=== PATIENT | male | born 1995 | race Caucasian/White ===

== ENCOUNTER 2017-10-12 07:17 | Emergency (ER) | payer OTHER ==
[~2017-10-12] VITALS: Ht 185.4 cm; Wt 77.1 kg
[~2017-10-12 07:17] MED LIST: ACE3 PO; ACE500 PO; ALB6.7R INH; ALBU2.5V36 INH; ALBU8.5H IH; AMOX-559 PO; AZI250 PO; AZIT-1 PO; BENZ200C15 PO; BUTA1CAP4; BUTA1CAP4 PO; DEXT15SY15 PO; DICY-42 PO; FEXO30TA PO; FLU60VIA21 IM ONLY; GUAI177L2 PO; HYDR-3250 PO; IBUP400T13 PO; MYLL PO; NAPR-724 PO; ONDA4TAB PO; ONDA4TAB97 PO; PANT40SU3 PO; PENI-24 PO; PRE20 PO; PRED-1 PO; PRED20TA6 PO; RANI-315 PO; RIZA10TA24 PO; SUMA50TA34 PO; TRAZ-156 PO; Work Note; [UNRECOGNIZED DRUG - CODE] PO
[2017-10-12] MEDS ORDERED: ALBUTEROL/IPRATROPIUM 3 ML NEB NEB ONE (07:40)
--- NOTE | 2017-10-12 08:03 | ER Report ---
History and Physical Time Seen By MD: 07:35 Hx. of Stated Complaint: PT HAS BEEN SICK FOR 2 WEEKS, GETTING WORSE WITH COUGH, SORE THROAT AND CONGESTION. INHALER HAS NOT WORKED WAS SEEN IN CLINIC AND PRESCRIBED ZITHROMAX 2 DAYS AGO HPI/ROS CHIEF COMPLAINT: Cough shortness of breath HISTORY OF PRESENT ILLNESS: An otherwise healthy 22-year-old male significant past medical history of asthma moderately to poorly controlled saw his doctor 24 hours ago diagnosed negative influenza with upper respiratory most likely viral was given prednisone was been on prednisone for approximately 24 hours is not feeling better came to the emergency department for further evaluation. Patient is denying chest pain exertional dyspnea orthopnea or PND. Patient says that his cough is nonproductive but persistent and is awoke him up from sleep. Patient has no abdominal pain no nausea vomiting diarrhea fever or chills patient stated that he thought he may have had a fever yesterday of 101. REVIEW OF SYSTEMS: Respiratory: Cough mild shortness of breath Cardiovascular: No chest pain, no palpitations. Gastrointestinal: No vomiting, no abdominal pain. Musculoskeletal: No back pain. Remainder of the 14 system rev: Yes Allergies: Coded Allergies: No Known Drug Allergies (Verified , 10/12/17) Home Meds Active Scripts Prednisone (PREDNISONE) 20 Mg Tablet, 1 TAB PO BID for 5 Days, #10 TAB 0 Refills Prov:MEGAN RAMOS DNP, FNP-BC 10/10/17 Azithromycin (ZITHROMAX) 250 Mg Tablet, 0 PO QDAY, #6 TAB 0 Refills TAKE 2 TABLETS ON DAY 1 AND 1 TABLET ON DAYS 2-5 Prov:MEGAN RAMOS DNP, FNP-BC 10/10/17 Dicyclomine Hcl (BENTYL) 10 Mg Capsule, 1 CAP PO Q6H Y for PAIN, #30 CAPSULE 6 Refills Prov:GRECIA MCNEIL MD 05/23/17 Trazodone Hcl (TRAZODONE HCL) 50 Mg Tablet, 1 TAB PO QHS for Sleep, #30 TAB 0 Refills Prov:MEGAN RAMOS DNP, FNP-BC 03/28/17 Albuterol Sulfate 0.083% (ALBUTEROL SULFATE 0.083%) 2.5 Mg/3 Ml Vial.neb, 2.5 MG INH QID Y for asthma symptoms, #25 INH Prov:XENIA ADBI DO 01/11/17 Albuterol Sulfate 90 Mcg/Act (PROAIR HFA 90 MCG/ACT) 8.5 Gm Hfa.aer.ad, 2 PUFF IH Q4-6H Y for WHEEZING, #1 INHALER 3 Refills Prov:MEGAN RAMOS DNP, FNP-BC 11/26/16 Reported Medications Aspirin/Acetaminophen/Caffeine (MIGRAINE RELIEF CAPLET) 1 Each Tablet, 1 EACH PO PRN 04/06/17 Discontinued Scripts Rizatriptan Benzoate ([employer]) 10 Mg Tab.rapdis, 1 TAB PO PRN Y for MIGRAINE , #12 TAB 0 Refills m1 tab at start of headache, repeat 1 hour if needed, thereafter every 8 hours. max 4 tab in 24 hours. Prov:MEGAN RAMOS DNP, FNP-BC 10/10/17 Naproxen (NAPROXEN) 500 Mg Tablet, 1 TAB PO BID Y for PAIN, #20 TAB 0 Refills Prov:MEGAN RAMOS DNP, FNP-BC 07/13/17 Ondansetron (ZOFRAN ODT) 4 Mg Tab.rapdis, 4 MG PO Q6-8H Y for NAUSEA/VOMITING, # 15 TAB.AYSE Prov:SILVANA DOW DO 05/15/17 Reviewed Nurses Notes: Yes Old Medical Records Reviewed: Yes Hx Smoking: Yes (SMOKES 1/2 PPD FOR 4 YEARS. CHEWS SNUFF PACKETS) Smoking Status: Current: Every Day Smoker Exposure to Second Hand Smoke?: No Hx Substance Use Disorder: Yes (marijuana) Hx Alcohol Use: No Constitutional Vital Sign - Last 24 Hours 10/12/17 10/12/17 10/12/17 10/12/17 07:22 07:23 07:30 07:44 Temp 99.8 Pulse 89 96 Resp 20 16 B/P (MAP) 144/89 144/89 (107) 132/78 (96) Pulse Ox 92 O2 Delivery Room Air 10/12/17 10/12/17 10/12/17 10/12/17 07:44 07:45 07:47 07:50 Pulse 85 B/P (MAP) 125/88 (100) Pulse Ox 91 98 98 O2 Delivery Room Air Room Air 10/12/17 10/12/17 10/12/17 10/12/17 07:50 08:00 08:04 08:15 Pulse 82 Resp 16 B/P (MAP) 113/108 (110) 134/86 (102) 128/79 (95) 10/12/17 10/12/17 08:17 08:30 Pulse 83 B/P (MAP) 140/89 (106) Pulse Ox 93 Physical Exam General Appearance: [The patient is alert, has no immediate need for airway protection and no current signs of toxicity.] [ ] Eyes: Pupils equal and round no injection. Respiratory: Patient with out and expiratory wheezes difficult to appreciate due to poor inspiratory next [place] effort otherwise unremarkable exam Cardiac: regular rate and rhythm [ ] Gastrointestinal: Abdomen is soft and non tender, no masses, bowel sounds normal. Musculoskeletal: Neck: Neck is supple and non tender. Extremities have full range of motion and are non tender. Skin: No rashes or lesions. [ ] DIFFERENTIAL DIAGNOSIS: After history and physical exam differential diagnosis was considered for think rule out for pulmonary emboli rule out for cardiac abnormality viral upper respiratory influenza asthma exacerbation Medical Decision Making Data Points Laboratory Hematology Test 10/12/17 07:41 Influenza Virus Type A (PCR) Negative (NEGATIVE) Influenza Virus Type B (PCR) Positive (NEGATIVE) Chemistry Test 10/12/17 07:41 Influenza Virus Type A (PCR) Negative (NEGATIVE) Influenza Virus Type B (PCR) Positive (NEGATIVE) ED Course/Re-evaluation ED Course ED clinical course medical decision making 22-year-old male comes in with an upper respiratory cough and subjective low-grade fevers had a negative influenza repeat influenza here was positive for influenza B patient has had symptoms for over a week now so Tamiflu will be ineffective we'll give him some Tessalon Perles for his cough [id number] cough suppressant and a week off of work have him follow up with his primary care Decision to Disposition Date: Oct 12, 2017 Decision to Disposition Time: 08:42 Depart Departure Latest Vital Signs Vital Signs Date Time Temp Pulse Resp B/P (MAP) Pulse Ox O2 Delivery O2 Flow Rate FiO2 10/12/17 08:30 140/89 (106) 10/12/17 08:17 83 93 10/12/17 07:50 16 10/12/17 07:50 Room Air 10/12/17 07:22 99.8 Impression: Primary Impression: Influenza B Condition: Improved Disposition: HOME OR SELF-CARE Referrals: MEGAN RAMOS DNP, NEUROLOGY TECHNOLOGIST-BC (PCP) New Scripts Benzonatate 100 Mg Cap (TESSALON PERLE 100 MG CAP) 100 Mg Capsule 100 MG PO TID, #15 CAP Prov: THU CHEN MD 10/12/17 Patient Instructions: Influenza (DC) THU CHEN MD Oct 12, 2017 08:03
--- NOTE | 2017-10-12 08:22 | RADIOLOGY IMAGING REPORT ---
FACILITY: [facility] [place] PATIENT NAME: Rolly Newell : 1995 MR: [id number] V: [id number] EXAM DATE: ORDERING PHYSICIAN: THU CHEN TECHNOLOGIST: Location: [facility] Patient: Rolly Newell : 1995 Visit/Account:[id number] Date of Sevice: 10/12/2017 EXAMINATION: Chest radiographs 2 views HISTORY: Cough. COMPARISON: 07/20/2016 FINDINGS: PA and lateral views of the chest are submitted. Lines/tubes: None. Lungs/pleura: No focal consolidation or pleural effusion. Heart: Negative. Mediastinum: Negative. Bony structures/body wall: Negative. IMPRESSION: No radiographic evidence of acute cardiopulmonary disease. Report Dictated By: Purnima Mccarty MD at 10/12/2017 8:16 AM Report E-Signed By: Purnima Mccarty MD at 10/12/2017 8:18 AM WSN:[id number]
[2017-10-12] MEDS ORDERED: BENZ100C4 PO (08:44)
[2017-10-12 08:49] VITALS: BP 129/81
== END 2017-10-12 09:04 | disposition home or self-care (01) ==
LOC: ER 07:24
DX: J11.1 Influenza due to unidentified influenza virus with other respiratory manifestations (principal)
CPT/HCPCS: 71046; 87502; 94640; 99282; J7620

== ENCOUNTER → 2018-06-26 | Outpatient (REF) | payer OTHER ==
[~2018-06-26] MED LIST changes: +BENZ100C4 PO; -NAPR-724 PO; +NAPR500T31 PO; -TRAZ-156 PO; +TRAZ50TA34 PO
[2018-06-26 18:39] LABS: PLATELET COUNT, AUTOMATED 199 K/uL (150-450)
== END ==
PROVIDERS: ATTEND Family Medicine
DX: S09.90XA Unspecified injury of head, initial encounter (principal)
CPT/HCPCS: 82040; 82247; 82310; 82374; 82435; 82565; 82947; 84075; 84132; 84155; 84295; 84450; 84460; 84520; 85025; 86140

== ENCOUNTER → 2018-06-26 | Outpatient (CLI) | payer OTHER ==
--- NOTE | 2018-06-26 18:32 | RADIOLOGY IMAGING REPORT ---
FACILITY: [facility] PATIENT NAME: Rolly Newell : 1995 MR: [id number] V: [id number] EXAM DATE: ORDERING PHYSICIAN: JODIE NICOLAS TECHNOLOGIST: Location: [facility] Patient: Rolly Newell : 1995 Visit/Account:[id number] Date of Sevice: 06/26/2018 EXAMINATION: CT Head Without Contrast 06/26/2018 5:58 PM HISTORY: Head trauma TECHNIQUE: Contiguous axial images were obtained from the skull base to the vertex without intraven ous contrast. One of the following dose optimization techniques was utilized in the performance of this exam: Autom ated exposure control; adjustment of the mA and/or kV according to the patient's size; or use of an i terative reconstruction technique. Specific details can be referenced in the facility's radiology C T exam operational policy. COMPARISON STUDIES: MR 11/12/2015. CT 09/23/2015. FINDINGS: Ventricles / sulci / fissures: negative Masses / hemorrhage / midline shift: negative White matter: negative Yee-white differentiation: negative Extra-axial spaces: negative Dural venous sinuses / arterial structures: negative Skull base / calvarium: No acute bony finding. Wax along the external auditory canal on the right. Visualized mastoid air cells / paranasal sinuses: negative IMPRESSION: Normal head CT. No evidence of mass, acute ischemia or hemorrhage. I am having the [facility]'s call negative results to JODIE NICOLAS for me at 06/26/2018 6:29 PM. Report Dictated By: Stew Jacobson MD at 06/26/2018 6:24 PM Report E-Signed By: Stew Jacobson MD at 06/26/2018 6:29 PM WSN:[id number]
== END ==
LOC: CT 17:38
PROVIDERS: ATTEND Family Medicine
DX: S09.90XA Unspecified injury of head, initial encounter (principal)
CPT/HCPCS: 70450

== ENCOUNTER → 2018-11-07 | Outpatient (CLI) | payer OTHER ==
[~2018-11-07] MED LIST changes: +PANT40TA65 PO
--- NOTE | 2018-11-07 15:45 | RADIOLOGY IMAGING REPORT ---
FACILITY: [facility] [place] PATIENT NAME: oRlly Newell : 1995 MR: [id number] V: [id number] EXAM DATE: ORDERING PHYSICIAN: BETTY LYONS TECHNOLOGIST: Location: [facility] Patient: Rolly Newell : 1995 Visit/Account:[id number] Date of Sevice: 11/07/2018 TESTICULAR HISTORY: Intermittent right testicular pain COMPARISON: CT on pelvis May 15, 2017 FINDINGS: Testes: The right testicle measures 5.2 x 2.6 x 3.1 cm. The left measures 4.9 x 2.3 x 3 cm. Symmetr ic and unremarkable blood flow documented by color and Duplex Doppler ultrasound. Epididymides: There is a 3.3 mm cyst in the head the epididymis on the right. There is a 6.5 mm cyst had epididymis on the left Blood flow is unremarkable in each epididymis by color Doppler ultrasoun d. Hydrocele: Small bilaterally Varicocele: On the left IMPRESSION: There small bilateral hydroceles and a small left varicocele There are small cysts in the head the epididymides bilaterally Report Dictated By: Bella Shepherd MD at 11/07/2018 3:39 PM Report E-Signed By: Bella Shepherd MD at 11/07/2018 3:41 PM WSN:[email or web address]
== END ==
LOC: US 09:57
DX: N43.2 Other hydrocele (principal); I86.1 Scrotal varices; N50.3 Cyst of epididymis
CPT/HCPCS: 76870

== ENCOUNTER 2019-01-16 12:56 | Emergency (ER) | payer OTHER ==
--- NOTE | 2019-01-16 13:23 | ER Report ---
History and Physical Time Seen By : 13:09 Hx. of Stated Complaint: PATIENT SLICED HIS FINGER AT WORK WHILST SLICING WHITE ONIONS HPI/ROS CHIEF COMPLAINT: Laceration of left middle finger HISTORY OF PRESENT ILLNESS: This is a 23-year-old male presents to emergency department for laceration of left middle finger. Patient states that he was at work cutting some onions knife slipped and cut the distal end of his left middle finger, through the corner of the nail. States he had significant amount of bleeding, he did irrigate the wound at work. The ER for evaluation. Bleeding is controlled. No other injuries identified. REVIEW OF SYSTEMS: Respiratory: No cough, no dyspnea. Cardiovascular: No chest pain, no palpitations. Gastrointestinal: No vomiting, no abdominal pain. Musculoskeletal: No back pain. Integument: As above. Allergies: Coded Allergies: No Known Drug Allergies (Verified , 10/12/17) Home Meds Active Scripts Albuterol Sulfate 0.083% (ALBUTEROL SULFATE 0.083%) 2.5 Mg/3 Ml Vial.neb, 2.5 MG INH QID PRN for WHEEZING, #30 INH 6 Refills Prov:GARY BOYD MD 08/31/18 Pantoprazole Sodium (PANTOPRAZOLE SODIUM) 40 Mg Tablet.dr, 40 MG PO QDAY, #30 TAB.SR 3 Refills Prov:GARY BOYD MD 08/31/18 Albuterol Sulfate 90 Mcg/Act (PROAIR HFA 90 MCG/ACT) 8.5 Gm Hfa.aer.ad, 2 PUFF IH Q4-6H PRN for WHEEZING, #1 INHALER 3 Refills Prov:MEGAN RAMOS DNP, SCHOOL YEAR NANNY-BC 11/26/16 Reported Medications Aspirin/Acetaminophen/Caffeine (MIGRAINE RELIEF CAPLET) 1 Each Tablet, 1 EACH PO PRN 04/06/17 Past Medical/Surgical History Patient has a past medical and surgical history of concussions, seizures was concussions, headaches, angina from anxiety, asthma, carpal tunnel syndrome, cysts on kidneys, hand fracture, he uses marijuana, anxiety, epigastric hernia repair. Reviewed Nurses Notes: Yes Hx Smoking: Yes (SMOKES 1/2 PPD FOR 4 YEARS. CHEWS SNUFF PACKETS) Smoking Status: Current: Every Day Smoker Exposure to Second Hand Smoke?: No Hx Substance Use Disorder: Yes (marijuana) Hx Alcohol Use: No Constitutional Vital Sign - Last 24 Hours 01/16/19 13:00 Temp 98.2 Pulse 71 Resp 20 B/P (MAP) 136/91 Pulse Ox 92 O2 Delivery Room Air Physical Exam General Appearance: The patient is alert, has no immediate need for airway protection and no current signs of toxicity. Eyes: Pupils equal and round no injection. Respiratory: Chest is non tender, lungs are clear to auscultation. Cardiac: regular rate and rhythm . Gastrointestinal: Abdomen is soft and non tender, no masses, bowel sounds normal. Musculoskeletal: Neck: Neck is supple and non tender. Extremities have full range of motion and are non tender. Skin: Small avulsion laceration to the distal aspect of the left middle finger. Small corner of the nail involved. Bleeding controlled. DIFFERENTIAL DIAGNOSIS: After history and physical exam differential diagnosis was considered for laceration. Medical Decision Making ED Course/Re-evaluation ED Course Patient was admitted to room. A history of physical were obtained. Differential diagnoses were considered. A digital block with provided relief of the discomfort. The wound was cleansed, as I was ready to suture the 2 cm avulsion, the patient requested that I just cut the flap off, I did explain to the patient the avulsed piece would act as a bandage, however he did not want return for suture removals, I did cut the flap off. The wound was dressed, we discussed wound care and management. He requested understanding. I did find him that antibiotics are not warranted at this time, he did express understanding. He had no other questions or concerns at this time and was discharged home. His tetanus was up-to-date. Decision to Disposition Date: January 16, 2019 Decision to Disposition Time: 14:20 Depart Departure Latest Vital Signs Vital Signs Date Time Temp Pulse Resp B/P (MAP) Pulse Ox O2 Delivery O2 Flow Rate FiO2 01/16/19 13:00 98.2 71 20 136/91 92 Room Air Impression: Primary Impression: Laceration of left middle finger Condition: Improved Disposition: HOME OR SELF-CARE Referrals: GARY BOYD MD (PCP) Patient Instructions: Acute Wound Care (ED) Additional Instructions: Keep wound dry for 48 hours. Follow up with your primary care provider in the next 7-10 days for reevaluation if no improvement. Monitor for signs of infection; redness, swelling, heat, discharge, increasing pain or red streaking. Take Tylenol or Ibuprofen as needed for pain. Return to the ER with any concerns. You may change dressing as needed. Problem Qualifiers Primary Impression: Laceration of left middle finger Encounter type: initial encounter Damage to nail status: with damage Foreign body presence: without foreign body Qualified Codes: S61.313A - Laceration without foreign body of left middle finger with damage to nail, initial encounter MARIO ALVARENGA-DIANE January 16, 2019 13:23
[2019-01-16] MEDS ORDERED: DIPHTH/TETANUS/ACEL. PERTUSSIS IM ONLY ONE (13:40)
[2019-01-16 14:32] VITALS: BP 147/63
== END 2019-01-16 14:33 | disposition home or self-care (01) ==
LOC: ER 13:08
DX: S61.213A Laceration without foreign body of left middle finger without damage to nail, initial encounter (principal); W26.0XXA Contact with knife, initial encounter
CPT/HCPCS: 99283

== ENCOUNTER → 2019-02-11 | Outpatient (REF) | payer OTHER ==
[~2019-02-11] MED LIST changes: -TRAZ50TA34 PO; +TRAZ50TA52 PO
[2019-02-11 14:32] LABS: PLATELET COUNT, AUTOMATED 193 K/uL (150-450)
== END ==
LOC: ZZSTITCHES 14:18
PROVIDERS: ATTEND Physician Assistant
DX: R10.31 Right lower quadrant pain (principal); R10.11 Right upper quadrant pain; N44.2 Benign cyst of testis; K30 Functional dyspepsia
CPT/HCPCS: 82040; 82247; 82310; 82374; 82435; 82565; 82947; 84075; 84132; 84155; 84295; 84450; 84460; 84520; 85025; 86140